=== PATIENT | male | born 1975 | race African-American/Black ===

== ENCOUNTER 2023-12-21 18:58 | Outpatient (CLI) | payer OTHER, SELFPAY | END 2023-12-21 18:59 | disposition home or self-care (01) | LOC: AMB 01-10 14:49 | PROVIDERS: Visit Provider Family Medicine | DX: S29.9XXA Unspecified injury of thorax, initial encounter (principal); V43.52XA Car driver injured in collision with other type car in traffic accident, initial encounter; Y92.410 Unspecified street and highway as the place of occurrence of the external cause | CPT/HCPCS: A0998 ==